=== PATIENT | male | born 1950 | race American Indian/Alaskan Native ===

== ENCOUNTER 2017-06-14 06:39 | Emergency (ER) | payer MEDICARE, MEDICAID ==
[2017-06-14 07:22] VITALS: BP 134/70
[2017-06-14] MEDS ORDERED: DECADRON IM ONE (07:52)
--- NOTE | 2017-06-14 07:54 | Emergency Department Report ---
ED General Adult HPI - General Chief complaint: Skin Rash Stated complaint: ALLERGIC REACTION Time Seen by Provider: 06/14/17 07:45 Source: patient Mode of arrival: Ambulatory Limitations: No Limitations - History of Present Illness Initial comments: 66 year old male presents with recurrent rash for over a week. states that it is itchy and scattered to the whole body. states that he saw his pcp and got tested for several things such as HIV and syphillis and all negative. states that he is taking 40 mg prednisone a day with no relief. states that now he has slight swelling to right lip and left eye with minor itching. denies fever, throat swelling, QIAN. - Related Data Previous Rx's Medication Instructions Recorded Last Taken Type Gentamicin 0.3% Ophth Soln 2 drops OP Q8H #1 bottle 05/14/16 Unknown Rx Allergies Allergy/AdvReac Type Severity Reaction Status Date / Time No Known Allergies Allergy Verified 05/14/16 21:43 ED Review of Systems ROS: Stated complaint: ALLERGIC REACTION Other details as noted in HPI Constitutional: denies: chills, fever Eyes: denies: eye pain, eye discharge, vision change ENT: denies: ear pain, throat pain Respiratory: denies: cough, shortness of breath, wheezing Cardiovascular: denies: chest pain, palpitations Endocrine: no symptoms reported Gastrointestinal: denies: abdominal pain, nausea, diarrhea Genitourinary: denies: urgency, dysuria Musculoskeletal: denies: back pain, joint swelling, arthralgia Skin: rash. denies: lesions Neurological: denies: headache, weakness, paresthesias Psychiatric: denies: anxiety, depression Hematological/Lymphatic: denies: easy bleeding, easy bruising ED Past Medical Hx - Past Medical History Previous Medical History?: Yes Additional medical history: enlarged prostate, skin rash - Surgical History Past Surgical History?: Yes Hx Appendectomy: Yes - Social History Smoking Status: Current Every Day Smoker Substance Use Type: Alcohol, Prescribed - Medications Home Medications: Home Medications Medication Instructions Recorded Confirmed Last Taken Type Gentamicin 0.3% Ophth Soln 2 drops OP Q8H #1 bottle 05/14/16 Unknown Rx ED Physical Exam - General Limitations: No Limitations General appearance: alert, in no apparent distress - Head Head exam: Present: atraumatic, normocephalic - Eye Eye exam: Present: normal appearance - ENT ENT exam: Present: normal orophraynx, mucous membranes moist - Neck Neck exam: Present: normal inspection - Respiratory Respiratory exam: Present: normal lung sounds bilaterally. Absent: respiratory distress, wheezes - Cardiovascular Cardiovascular Exam: Present: regular rate, normal rhythm. Absent: systolic murmur, diastolic murmur, rubs, gallop - GI/Abdominal GI/Abdominal exam: Present: soft, normal bowel sounds - Rectal Rectal exam: Present: deferred - Extremities Exam Extremities exam: Present: normal inspection - Back Exam Back exam: Present: normal inspection - Neurological Exam Neurological exam: Present: alert, oriented X3, normal gait - Psychiatric Psychiatric exam: Present: normal affect, normal mood - Skin Skin exam: Present: warm, dry, intact, normal color, urticaria (on right face and right torso.). Absent: rash ED Course Vital Signs 06/14/17 07:18 Temperature 98.4 F Pulse Rate 87 Respiratory 20 Rate Blood Pressure 134/70 O2 Sat by Pulse 97 Oximetry ED Medical Decision Making - Medical Decision Making patient rash is very minor. advised to continue taking the prednisone and will give decadron in the ED. advised to fu with ignition specialist for further evaluation. NAD at this time. stable for DC. Critical care attestation.: If time is entered above; I have spent that time in minutes in the direct care of this critically ill patient, excluding procedure time. ED Disposition Clinical Impression: Rash and nonspecific skin eruption, Allergic reaction Disposition: DC-01 TO HOME OR SELFCARE Is pt being admited?: No Does the pt Need Aspirin: No Condition: Good Additional Instructions: change your soap and detergent to hypoallergenic product and follow up with family preservation caseworker for further assesment. Referrals: SANTOS JENKINS MD [Primary Care Provider] - 3-5 Days Forms: Work/School Release Form(ED) Time of Disposition: 07:55
== END 2017-06-14 08:01 | disposition home or self-care (01) ==
LOC: ED 06:39
DX: T78.40XA Allergy, unspecified, initial encounter (principal); R21 Rash and other nonspecific skin eruption; F17.200 Nicotine dependence, unspecified, uncomplicated
CPT/HCPCS: 96372; 99282; J1100

== ENCOUNTER 2017-07-21 10:26 | Emergency (ER) | payer MEDICARE, MEDICAID ==
[2017-07-21 11:31] VITALS: BP 112/72
--- NOTE | 2017-07-21 15:03 | XRay Report ---
ROUTINE CHEST, TWO VIEWS: HISTORY: Cough. The trachea, heart, mediastinal contour, lung edwards and bony thorax are unremarkable. IMPRESSION: Unremarkable chest x-ray.
[2017-07-21] MEDS ORDERED: DUONEB *Not for PRN Use IH ONE (15:51)
[2017-07-21] MEDS ORDERED: GUAIFENESIN DM SYRUP PO ONE (15:51)
[2017-07-21] MEDS ORDERED: DELTASONE PO ONE (15:51)
--- NOTE | 2017-07-21 15:57 | Emergency Department Report ---
- General Chief Complaint: Upper Respiratory Infection Stated Complaint: COUGH WHEEZING SORETHROAT Time Seen by Provider: 07/21/17 14:22 Source: patient Mode of arrival: Ambulatory Limitations: No Limitations - History of Present Illness Initial Comments: 66-year-old male past medical history smoker presents with complaint of persistent cough for over one week. Patient is awake alert and oriented 3 no audible wheezing or stridor no dyspnea no trismus no drooling. Patient is awake alert and oriented 3. Not in acute distress. Denies any chest pain pleuritic chest pain nausea vomiting abdominal pain. Patient states he smokes at least half a pack a day Complaint: cough Onset/Timin -: week(s) Severity: moderate Associated Symptoms: cough - Related Data Previous Rx's Medication Instructions Recorded Last Taken Type Gentamicin 0.3% Ophth Soln 2 drops OP Q8H #1 bottle 05/14/16 Unknown Rx Albuterol Sulfate [Ventolin Hfa] 1 puff IH Q4H PRN #1 hfa.aer.ad 07/21/17 Unknown Rx Azithromycin [Zithromax Z-CHAN] 250 mg PO QDAY #1 pack 07/21/17 Unknown Rx Phenylephrine/Dm/Acetaminop/GG 10 ml PO Q6H PRN #1 liquid 07/21/17 Unknown Rx [Mucinex Wkef-Kys-Tmarjfhdwt Lq] predniSONE [Deltasone] 40 mg PO QDAY #10 tab 07/21/17 Unknown Rx Allergies Allergy/AdvReac Type Severity Reaction Status Date / Time No Known Allergies Allergy Verified 07/21/17 11:26 ED Review of Systems ROS: Stated complaint: COUGH WHEEZING SORETHROAT Other details as noted in HPI Constitutional: denies: chills, fever Eyes: denies: eye pain, eye discharge, vision change ENT: denies: ear pain, throat pain Respiratory: cough. denies: shortness of breath, wheezing Cardiovascular: denies: chest pain, palpitations Endocrine: no symptoms reported Gastrointestinal: denies: abdominal pain, nausea, diarrhea Genitourinary: denies: urgency, dysuria Musculoskeletal: denies: back pain, joint swelling, arthralgia Skin: denies: rash, lesions Neurological: denies: headache, weakness, paresthesias Psychiatric: denies: anxiety, depression Hematological/Lymphatic: denies: easy bleeding, easy bruising ED Past Medical Hx - Past Medical History Additional medical history: enlarged prostate, skin rash - Surgical History Hx Appendectomy: Yes - Social History Smoking Status: Current Every Day Smoker Substance Use Type: Alcohol - Medications Home Medications: Home Medications Medication Instructions Recorded Confirmed Last Taken Type Gentamicin 0.3% Ophth Soln 2 drops OP Q8H #1 bottle 05/14/16 Unknown Rx Albuterol Sulfate [Ventolin Hfa] 1 puff IH Q4H PRN #1 hfa.aer.ad 07/21/17 Unknown Rx Azithromycin [Zithromax Z-CHAN] 250 mg PO QDAY #1 pack 07/21/17 Unknown Rx Phenylephrine/Dm/Acetaminop/GG 10 ml PO Q6H PRN #1 liquid 07/21/17 Unknown Rx [Mucinex Igzx-Bcl-Isahhyswug Lq] predniSONE [Deltasone] 40 mg PO QDAY #10 tab 07/21/17 Unknown Rx ED Physical Exam - General Limitations: No Limitations General appearance: alert, in no apparent distress - Head Head exam: Present: atraumatic, normocephalic - Eye Eye exam: Present: normal appearance, PERRL, EOMI - ENT ENT exam: Present: mucous membranes moist - Neck Neck exam: Present: normal inspection - Respiratory Respiratory exam: Present: normal lung sounds bilaterally. Absent: respiratory distress - Cardiovascular Cardiovascular Exam: Present: regular rate, normal rhythm. Absent: systolic murmur, diastolic murmur, rubs, gallop - GI/Abdominal GI/Abdominal exam: Present: soft, normal bowel sounds - Rectal Rectal exam: Present: deferred - Extremities Exam Extremities exam: Present: normal inspection - Back Exam Back exam: Present: normal inspection - Neurological Exam Neurological exam: Present: alert, oriented X3 - Psychiatric Psychiatric exam: Present: normal affect, normal mood - Skin Skin exam: Present: warm, dry, intact, normal color. Absent: rash ED Course Vital Signs 07/21/17 07/21/17 07/21/17 11:27 15:58 16:24 Temperature 98.5 F Pulse Rate 95 H Pulse Rate [ 89 71 Posterior Bilateral Throughout] Respiratory 18 Rate Respiratory 20 18 Rate [Posterior Bilateral Throughout] Blood Pressure 112/72 O2 Sat by Pulse 96 Oximetry ED Medical Decision Making - Medical Decision Making A/P: Acute bronchitis, reactive airway disease 1-empiric coverage with azithromycin, course of prednisone, albuterol inhaler, naproxen 2-chest x-ray shows no pneumonia, Mucinex. 3-follow-up with primary doctor, vital signs stable for discharge Critical care attestation.: If time is entered above; I have spent that time in minutes in the direct care of this critically ill patient, excluding procedure time. ED Disposition Clinical Impression: Acute bronchitis Qualifiers: Bronchitis organism: unspecified organism Qualified Code(s): J20.9 - Acute bronchitis, unspecified Reactive airway disease Qualifiers: Asthma severity: mild Asthma persistence: intermittent Asthma complication type : with status asthmaticus Qualified Code(s): J45.22 - Mild intermittent asthma with status asthmaticus Disposition: TO HOME OR SELFCARE Is pt being admited?: No Does the pt Need Aspirin: No Condition: Stable Instructions: Acute Bronchitis (ED), Reactive Airways Disease (ED) Prescriptions: Albuterol Sulfate [Ventolin Hfa] 1 puff IH Q4H PRN #1 hfa.aer.ad PRN Reason: Nausea Azithromycin [Zithromax Z-CHAN] 250 mg PO QDAY #1 pack Phenylephrine/Dm/Acetaminop/GG [Mucinex Msnu-Wla-Qwnvyzcyqn Lq] 10 ml PO Q6H PRN #1 liquid PRN Reason: Nausea predniSONE [Deltasone] 40 mg PO QDAY #10 tab Referrals: [facility] [Outside] - 3-5 Days [facility] [Outside] - 3-5 Days MARIVEL KRISHNAN MD [Staff Physician] - 3-5 Days Forms: Accompanied Note Time of Disposition: 16:21
[2017-07-21] MEDS ORDERED: ZOFRAN ODT PO ONE (16:03)
[2017-07-21] MEDS ORDERED: ZOFRAN ODT ONE (16:06)
== END 2017-07-21 16:36 | disposition home or self-care (01) ==
LOC: ED 10:26
DX: J20.9 Acute bronchitis, unspecified (principal); J45.22 Mild intermittent asthma with status asthmaticus; F17.200 Nicotine dependence, unspecified, uncomplicated
CPT/HCPCS: 71046; 87116; 87400; 87430; 94640; 99284; J7512; Q0162

== ENCOUNTER 2021-03-29 10:14 | Emergency (ER) | payer MEDICARE, MEDICAID ==
--- NOTE | 2021-03-29 10:24 | Emergency Department Report ---
ED Male HPI - General Stated complaint: ABD PAIN,TROUBLE URINATING Time Seen by Provider: 03/29/21 10:19 - History of Present Illness Initial comments: patient presents secondary to urinary symptoms. 2 weeks ago, he went to his doctor and was told that he had a urinary infection. He has some burning with urination. They checked a urine and told him it was infectious. He was placed on antibiotics. That seemed to help. Over the last several days, he has had more more difficulty with discomfort. He had followed up with his urologist this week. He had been told that he had an enlarged prostate based on an ultrasound done in the office. He was given medications which "were supposed to help." He states that the medication provided by the urologist has provided no symptomatic improvement. He is still complaining of dysuria. He states that this morning he is not really able to pee. he reports lower abdominal and suprapubic pain associated with this. There is no fever or chill. He has no flank pain. There is no history of hematuria. There is no trauma. - Related Data Previous Rx's Medication Instructions Recorded Last Taken Type Gentamicin 0.3% Ophth Soln 2 drops OP Q8H #1 bottle 05/14/16 Unknown Rx Albuterol Sulfate [Ventolin Hfa] 1 puff IH Q4H PRN #1 hfa.aer.ad 07/21/17 Unknown Rx Azithromycin [Zithromax Z-CHAN] 250 mg PO QDAY #1 pack 07/21/17 Unknown Rx Phenylephrine/Dm/Acetaminop/GG 10 ml PO Q6H PRN #1 liquid 07/21/17 Unknown Rx [Mucinex Hait-Tsi-Mqoglzovfh Lq] predniSONE [Deltasone] 40 mg PO QDAY #10 tab 07/21/17 Unknown Rx Allergies Allergy/AdvReac Type Severity Reaction Status Date / Time No Known Allergies Allergy Verified 07/21/17 11:26 ED Review of Systems ROS: Stated complaint: ABD PAIN,TROUBLE URINATING Other details as noted in HPI Comment: All other systems reviewed and negative Constitutional: denies: fever Eyes: denies: eye pain ENT: denies: throat pain Respiratory: denies: cough Cardiovascular: denies: chest pain Endocrine: denies: unexplained weight loss Gastrointestinal: as per HPI Genitourinary: as per HPI Musculoskeletal: denies: back pain Skin: denies: rash Neurological: denies: headache Hematological/Lymphatic: denies: easy bruising ED Past Medical Hx - Past Medical History Additional medical history: enlarged prostate, skin rash - Surgical History Hx Appendectomy: Yes - Family History Family history: no significant - Social History Smoking Status: Current Every Day Smoker Substance Use Type: Alcohol, Other ( We discussed tobacco cessation x3 minutes) - Medications Home Medications: Home Medications Medication Instructions Recorded Confirmed Last Taken Type Gentamicin 0.3% Ophth Soln 2 drops OP Q8H #1 bottle 05/14/16 Unknown Rx Albuterol Sulfate [Ventolin Hfa] 1 puff IH Q4H PRN #1 hfa.aer.ad 07/21/17 Unknown Rx Azithromycin [Zithromax Z-CHAN] 250 mg PO QDAY #1 pack 07/21/17 Unknown Rx Phenylephrine/Dm/Acetaminop/GG 10 ml PO Q6H PRN #1 liquid 07/21/17 Unknown Rx [Mucinex Qmjs-Gog-Smkekywlab Lq] predniSONE [Deltasone] 40 mg PO QDAY #10 tab 07/21/17 Unknown Rx ED Physical Exam - General Limitations: No Limitations, Other ( pulse ox was noted and normal. Is not hypoxic.) General appearance: alert, in distress ( Uncomfortable) - Head Head exam: Present: atraumatic, normocephalic, normal inspection - Eye Eye exam: Present: normal appearance, EOMI. Absent: scleral icterus - ENT ENT exam: Present: normal exam, normal orophraynx - Neck Neck exam: Absent: meningismus - Respiratory Respiratory exam: Present: normal lung sounds bilaterally. Absent: respiratory distress - Cardiovascular Cardiovascular Exam: Present: regular rate, normal rhythm - GI/Abdominal GI/Abdominal exam: Present: soft, tenderness ( suprapubic and moderate). Absent: pulsatile mass - Extremities Exam Extremities exam: Present: normal capillary refill - Back Exam Back exam: Absent: CVA tenderness (R), CVA tenderness (L) - Neurological Exam Neurological exam: Present: alert, oriented X3, CN II-XII intact. Absent: motor sensory deficit - Psychiatric Psychiatric exam: Present: normal affect, normal mood - Skin Skin exam: Present: warm, dry ED Course Vital Signs 03/29/21 10:25 Temperature 98.4 F Pulse Rate 92 H Respiratory 20 Rate Blood Pressure 114/72 O2 Sat by Pulse 99 Oximetry - Reevaluation(s) Reevaluation #1: 03/29/21 10:24 Bladder scan was ordered Reevaluation #2: 03/29/21 10:39 Bladder scan done by myself shows 312 mL of urine. Galindo was ordered. Reevaluation #3: 03/29/21 12:37 Galindo catheter drained over 400 mL of urine. UA is pending. Reevaluation #4: 03/29/21 13:25 UA was negative. ED Medical Decision Making - Medical Decision Making Patient presented with dysuria and lower abdominal pain. He is found to be in urinary retention. This is secondary likely to an enlarged prostate. Catheter was placed. Patient does not have evidence of urinary tract infection or pyelonephritis. We had a long discussion. Catheter was left in place. He can see his urologist Tuesday or Tuesday of this week. He is comfortable with plan. He feels much better after the drainage of his bladder. Critical Care Time: No Critical care attestation.: If time is entered above; I have spent that time in minutes in the direct care of this critically ill patient, excluding procedure time. ED Disposition Clinical Impression: Lower abdominal pain, Acute urinary retention Disposition: HOME / SELF CARE / HOMELESS Is pt being admited?: No Does the pt Need Aspirin: No Condition: Stable Instructions: Abdominal Pain, Adult, Acute Urinary Retention, Male Additional Instructions: Drink plenty water. Continue home medication. Follow-up with your urologist for recheck and evaluation in 48 hours. Referrals: PRIMARY CARE, [Primary Care Provider] - 3-5 Days
[2021-03-29] MEDS ORDERED: PHENAZOPYRIDINE 200 MG TAB PO ONE (10:25)
[2021-03-29 10:29] VITALS: BP 114/72
[2021-03-29] MEDS ORDERED: LIDOCAINE 2% UROJECT 10 ML JELLY UR ONE (10:38)
[2021-03-29 13:17] LABS: Bilirubin,Urine NEG (Negative); Blood,Urine MOD (Negative); Color,Urine Amber (Yellow); Mucus,Urine FEW /HPF; Protein,Urine <15 mg/dL mg/dL (Negative)
== END 2021-03-29 14:31 | disposition home or self-care (01) ==
LOC: ED 10:14
DX: R33.9 Retention of urine, unspecified (principal); R10.30 Lower abdominal pain, unspecified; N40.0 Benign prostatic hyperplasia without lower urinary tract symptoms; R21 Rash and other nonspecific skin eruption; Z90.89 Acquired absence of other organs; F17.200 Nicotine dependence, unspecified, uncomplicated
CPT/HCPCS: 51702; 81001; 99283